=== PATIENT | male | born 2000 ===

== ENCOUNTER 2018-03-15 14:27 | Emergency (ER) | payer SELFPAY ==
[2018-03-15 14:44] VITALS: BMI 24.5
[2018-03-15 15:01] VITALS: BP 134/78; PULSE 96; RESP 17; TEMP 96; O2SAT 100
--- NOTE | 2018-03-15 15:29 | C.PDOC ---
History Of Present Illness 17 y/o male presents to the ED complaining of a pruritic, burning rash developing for the last 3 days. Denies any sick contacts. He has no other associated complaints. Patient denies any headache, fever, chills, cough, or other symptoms. Time Seen by Provider: 03/15/18 14:55 Chief Complaint (Nursing): Abnormal Skin Integrity History Per: Patient History/Exam Limitations: no limitations Onset/Duration Of Symptoms: Days Current Symptoms Are (Timing): Still Present Past Medical History Reviewed: Historical Data, Nursing Documentation, Vital Signs Vital Signs: Last Vital Signs Temp 96 F L 03/15/18 14:46 Pulse 96 H 03/15/18 14:46 Resp 17 03/15/18 14:46 BP 134/78 03/15/18 14:46 Pulse Ox 100 03/15/18 14:46 Family History: States: No Known Family Hx - Social History Hx Alcohol Use: Yes Hx Substance Use: Yes - Immunization History Hx Tetanus Toxoid Vaccination: No Hx Influenza Vaccination: No Hx Pneumococcal Vaccination: No Review Of Systems Except As Marked, All Systems Reviewed And Found Negative. Constitutional: Negative for: Fever, Chills Cardiovascular: Negative for: Chest Pain Respiratory: Negative for: Shortness of Breath Skin: Positive for: Rash (to right posterior back/trunk) Neurological: Negative for: Weakness, Numbness, Headache Physical Exam - Physical Exam Appears: Non-toxic, No Acute Distress Skin: Warm, Dry, Rash (Large area to right posterior lateral flank with clusters of vesicles on erythematous base; No signs of superinfection, no increased warmth) Head: Atraumatic, Normacephalic Eye(s): bilateral: Normal Inspection Oral Mucosa: Moist Neck: Normal ROM Chest: Symmetrical Neurological/Psych: Oriented x3, Normal Speech ED Course And Treatment O2 Sat by Pulse Oximetry: 100 (RA) Pulse Ox Interpretation: Normal - Other Rad CXR X-Ray: Interpreted by Me, Viewed By Me Interpretation: LUNGS: No focal consolidation. Please note that chest x-ray has limited sensitivity for the detection of pulmonary masses. PLEURA: No significant pleural effusion identified. No definite pneumothorax . CARDIOVASCULAR: The cardiomediastinal silhouette appears within normal limits of size. No atherosclerotic calcification present. OSSEOUS STRUCTURES: No acute osseous abnormality identified. VISUALIZED UPPER ABDOMEN: Unremarkable. OTHER FINDINGS: None. IMPRESSION: No acute findings identified. Progress Note: CXR and accucheck done. CXR shows no acute disease. Finger stick is 88. Patient remains afebrile, AAOx3, in no acute distress. Acyclovir 800 mg given in the ED. Patient advised to follow up with the clinic. Disposition Counseled Patient/Family Regarding: Diagnosis, Need For Followup, Rx Given - Disposition Referrals: [facility] [Outside] Disposition: HOME/ ROUTINE Disposition Time: 15:25 Condition: STABLE Additional Instructions: Follow up with PMD /clinic within 1-2 days. Return to ED if feel worse. Prescriptions: Calamine/Zinc Oxide [Calamine Lotion] 1 appl TP BID #1 bottle Acyclovir [Zovirax] 800 mg PO QID #28 tab Instructions: Shingles (DC) Forms: [facility] (Moroccan) - POA Present On Arrival: None - Clinical Impression Clinical Impression: Herpes zoster - PA / [employer] / Resident Statement MD/DO has reviewed & agrees with the documentation as recorded. - Scribe Statement The provider has reviewed the documentation as recorded by the Scribe (Romina Hernandez) All medical record entries made by the Scribe were at my direction and personally dictated by me. I have reviewed the chart and agree that the record accurately reflects my personal performance of the history, physical exam, medical decision making, and the department course for this patient. I have also personally directed, reviewed, and agree with the discharge instructions and disposition.
--- NOTE | 2018-03-15 15:34 | RAD ---
HISTORY: right sided herpes zoster COMPARISON: No prior. TECHNIQUE: Chest PA and lateral FINDINGS: LUNGS: No focal consolidation. Please note that chest x-ray has limited sensitivity for the detection of pulmonary masses. PLEURA: No significant pleural effusion identified. No definite pneumothorax . CARDIOVASCULAR: The cardiomediastinal silhouette appears within normal limits of size. No atherosclerotic calcification present. OSSEOUS STRUCTURES: No acute osseous abnormality identified. VISUALIZED UPPER ABDOMEN: Unremarkable. OTHER FINDINGS: None. IMPRESSION: No acute findings identified.
== END 2018-03-15 15:37 | disposition home or self-care (01) ==
LOC: C.ER 14:27
DX: B02.9 Zoster without complications (principal)